=== PATIENT | male | born 1960 | race Caucasian/White ===

== ENCOUNTER 2017-06-12 21:55 | Emergency (ER) | payer OTHER ==
[2017-06-12] MEDS ORDERED: MVI, Adult with Vitamin K 10 ML, Thiamine 100 MG, Folic Acid 1 MG in Sodium Chloride 0.... IV ONE ×4 (22:14)
[2017-06-12] MEDS ORDERED: Pantoprazole 40 MG Vial IVPUSH ONE (22:16)
--- NOTE | 2017-06-12 22:17 | EDM.PDOC ---
ED HPI GENERAL MEDICAL PROBLEM - General Chief Complaint: Drug or Alcohol Abuse Stated Complaint: INTOXICATED Time Seen by Provider: 06/12/17 22:16 Source of Information: Reports: Patient - History of Present Illness INITIAL COMMENTS - FREE TEXT/NARRATIVE: HISTORY AND PHYSICAL: History of present illness: []Patient had been drinking a local bar tonight he fell asleep at the bar while drinking, they initially called the police who incurred and called the EMS which brought him to us He did nap for about an hour however is been alert interactive very cooperative and does not even appear toxic intoxicated at this time, the patient has a ride home or work and arrange taxi service discharged denies any and 8. Loss of consciousness no fever nausea vomiting chills sweats no chest pain shortness breath headache dizziness palpitation about a urine symptoms Review of systems: As per history of present illness and below otherwise all systems reviewed and negative. Past medical history: As per history of present illness and as reviewed below otherwise noncontributory. Surgical history: As per history of present illness and as reviewed below otherwise noncontributory. Social history: No reported history of drug or alcohol abuse. Family history: As per history of present illness and as reviewed below otherwise noncontributory. Physical exam: HEENT: Atraumatic, normocephalic, pupils reactive, negative for conjunctival pallor or scleral icterus, mucous membranes moist, throat clear, neck supple, nontender, trachea midline. Lungs: Clear to auscultation, breath sounds equal bilaterally, chest nontender. Heart: S1S2, regular, negative for clicks, rubs, or JVD. Abdomen: Soft, nondistended, nontender. Negative for masses or hepatosplenomegaly. Negative for costovertebral tenderness. Pelvis: Stable nontender. Genitourinary: Deferred. Rectal: Deferred. Extremities: Atraumatic, negative for cords or calf pain. Neurovascular unremarkable. Neuro: Awake, alert, oriented. Cranial nerves II through XII unremarkable. Cerebellum unremarkable. Motor and sensory unremarkable throughout. Exam nonfocal. Diagnostics: []Lab EKG Chest 1 view Therapeutics: Banana bag Tonics 80 mg IV Impression: []Alcohol intoxication Definitive disposition and diagnosis as appropriate pending reevaluation and review of above. Treatments MEETING SPECIALIST: Reports: IV/IO - Related Data Allergies Allergy/AdvReac Type Severity Reaction Status Date / Time No Known Allergies Allergy Verified 06/12/17 22:10 Home Meds: Home Meds . [No Known Home Meds] 06/12/17 [History] Past Medical History - Past Health History Medical/Surgical History: Denies Medical/Surgical History Social & Family History - Family History Family Medical History: Noncontributory - Tobacco Use Smoking Status *Q: Never Smoker - Caffeine Use Caffeine Use: Reports: Coffee - Recreational Drug Use Recreational Drug Use: No ED ROS GENERAL - Review of Systems Review Of Systems: ROS reveals no pertinent complaints other than HPI. ED EXAM, GENERAL - Physical Exam Exam: See Below Course - Vital Signs Last Recorded V/S: Last Vital Signs Temp 36.3 C 06/12/17 22:02 Pulse 85 06/12/17 22:02 Resp 16 06/12/17 22:02 BP 123/74 06/12/17 22:02 Pulse Ox 93 L 06/12/17 22:02 - Orders/Labs/Meds Orders: Active Orders 24 hr Category Date Time Status Chest 1V Frontal [CR] Stat Exams 06/12/17 22:14 Taken UA W/MICROSCOPIC [URIN] Stat Lab 06/12/17 22:14 Uncollected Sodium Chloride 0.9% [Normal Saline] 1,000 ml Med 06/12/17 23:30 Active IV STAT Medication Orders Sodium Chloride (Normal Saline) 1,000 mls @ 125 mls/hr IV STAT [facility] Labs: Laboratory Tests 06/12/17 06/12/17 06/12/17 Range/Units 22:24 22:24 22:24 WBC 8.87 (4.0-11.0) K/uL RBC 5.58 (4.50-5.90) M/uL Hgb 14.8 (13.0-17.0) g/dL Hct 43.8 (38.0-50.0) % MCV 78.5 L (80.0-98.0) fL MCH 26.5 L (27.0-32.0) pg MCHC 33.8 (31.0-37.0) g/dL RDW Std Deviation 41.2 (28.0-62.0) fl RDW Coeff of Leonardo 15 (11.0-15.0) % Plt Count 204 (150-400) K/uL MPV 9.50 (7.40-12.00) fL Neut % (Auto) 72.4 (48.0-80.0) % Lymph % (Auto) 22.4 (16.0-40.0) % [place] % (Auto) 3.7 (0.0-15.0) % Eos % (Auto) 1.0 (0.0-7.0) % Baso % (Auto) 0.5 (0.0-1.5) % Neut # (Auto) 6.4 H (1.4-5.7) K/uL Lymph # (Auto) 2.0 (0.6-2.4) K/uL [place] # (Auto) 0.3 (0.0-0.8) K/uL Eos # (Auto) 0.1 (0.0-0.7) K/uL Baso # (Auto) 0.0 (0.0-0.1) K/uL Nucleated RBC % 0.0 /100WBC Nucleated RBCs # 0 K/uL Sodium 139 (136-146) mmol/L Potassium 3.7 (3.5-5.1) mmol/L Chloride 104 (98-110) mmol/L Carbon Dioxide 21 (21-31) mmol/L BUN 9 (6.0-23.0) mg/dL Creatinine 0.9 (0.6-1.5) mg/dL Est Cr Clr Drug Dosing 109.09 mL/min Estimated GFR (MDRD) > 60.0 ml/min Glucose 160 H (60-110) mg/dL Calcium 8.8 (8.8-10.8) mg/dL Total Bilirubin 0.3 (0.1-1.5) mg/dL AST 33 (5-40) IU/L ALT 47 (8-54) IU/L Alkaline Phosphatase 111 (40-150) Creatine Kinase 58 (9-236) IU/L CK-MB (CK-2) 0.6 (0-6.6) ng/ml Troponin I < 0.10 (0.0-0.29) NG/ML Total Protein 7.3 (6.0-8.0) g/dL Albumin 4.1 (3.5-5.0) g/dL Globulin 3.2 (2.0-3.5) g/dL Albumin/Globulin Ratio 1.3 (1.3-2.8) Ethyl Alcohol 228.2 mg/dL Meds: Medications Generic Name Dose Route Start Last Admin Trade Name Freq PRN Reason Stop Dose Admin Sodium Chloride 1,000 mls @ 125 mls/hr 06/12/17 23:30 Normal Saline IV STAT D[facility] Discontinued Medications Generic Name Dose Route Start Last Admin Trade Name Freq PRN Reason Stop Dose Admin Multivitamins/Minerals 10 ml/ 1,011.2 mls @ 999 mls/hr 06/12/17 22:14 22:39 Thiamine HCl 100 mg/ Folic IV 06/12/17 23:14 999 mls/hr Acid 1 mg/ Sodium Chloride ONETIME ONE Administration Ondansetron HCl 8 mg 06/12/17 23:23 06/12/17 23:33 Zofran IVPUSH 06/12/17 23:24 8 mg ONETIME ONE Administration Pantoprazole Sodium 80 mg 06/12/17 22:16 06/12/17 22:34 Protonix Iv IVPUSH 06/12/17 22:17 80 mg .BOLUS ONE Administration Departure - Departure Time of Disposition: 23:52 Disposition: Home, Self-Care 01 Condition: Good Clinical Impression: Alcohol intoxication - Discharge Information Forms: ED Department Discharge Additional Instructions: The following information is given to patients seen in the emergency department who are being discharged to home. This information is to outline your options for follow-up care. We provide all patients seen in our emergency department with a follow-up referral. The need for follow-up, as well as the timing and circumstances, are variable depending upon the specifics of your emergency department visit. If you don't have a primary care physician on staff, we will provide you with a referral. We always advise you to contact your personal physician following an emergency department visit to inform them of the circumstance of the visit and for follow-up with them and/or the need for any referrals to a consulting specialist. The emergency department will also refer you to a specialist when appropriate. This referral assures that you have the opportunity for follow-up care with a specialist. All of these measure are taken in an effort to provide you with optimal care, which includes your follow-up. Under all circumstances we always encourage you to contact your private physician who remains a resource for coordinating your care. When calling for follow-up care, please make the office aware that this follow-up is from your recent emergency room visit. If for any reason you are refused follow-up, please contact the [facility] emergency department at and asked to speak to the emergency department charge nurse. - My Orders Last 24 Hours: My Active Orders 06/12/17 22:14 Chest 1V Frontal [CR] Stat UA W/MICROSCOPIC [URIN] Stat 06/12/17 23:30 Sodium Chloride 0.9% [Normal Saline] 1,000 ml IV STAT - Assessment/Plan Last 24 Hours: My Active Orders 06/12/17 22:14 Chest 1V Frontal [CR] Stat UA W/MICROSCOPIC [URIN] Stat 06/12/17 23:30 Sodium Chloride 0.9% [Normal Saline] 1,000 ml IV STAT
[2017-06-12 22:52] LABS: CHLORIDE,CL 104 mmol/L (98-110); SODIUM,NA 139 mmol/L (136-146)
[2017-06-12] MEDS ORDERED: Ondansetron 4 MG/2 ML SDV IVPUSH ONE (23:23)
[2017-06-12] MEDS ORDERED: Sodium Chloride 0.9% 1,000 ML IV SCH (23:30)
[2017-06-13 00:47] VITALS: BP 106/64
--- NOTE | 2017-06-13 10:52 | CR ---
EXAM DATE: 06/12/17 PATIENT'S AGE: 56 Patient: BABITA SHERMAN Facility: [place], [place] Site . Site : [id number] Study: XRay Chest [id number]/28/2017 11:01:04 PM Ordering Physician: Yana Pires Final Report: INDICATION: PAIN, INTOXICATION TECHNIQUE: Chest 1 view COMPARISON: None FINDINGS: Cardiovascular and mediastinum: Heart size and vasculature are normal in caliber and appearance. Mediastinum is within normal limits. Lungs and pleural space: No focal consolidation. No sign of pleural effusion. No pneumothorax. Bones and soft tissues: No significant findings. IMPRESSION: No acute cardiopulmonary disease. Dictated by Feliciano Wall MD @ 06/12/2017 11:05:33 PM Dictated by: Feliciano Wall MD @ 06/12/2017 23:05:38 (Electronic Signature) Report Signed by Proxy. [facility]
== END 2017-06-13 00:05 | disposition home or self-care (01) ==
LOC: MW.ED 21:55
DX: F10.129 Alcohol abuse with intoxication, unspecified (principal); Y90.7 Blood alcohol level of 200-239 mg/100 ml
CPT/HCPCS: 36415; 71010; 80053; 82550; 82553; 84484; 85025; 96365; 96375; 99284; C9113; G0480; J2405; J3411; J7040; 99282